=== PATIENT | male | born 1975 | race African-American/Black ===

== ENCOUNTER 2019-03-09 21:51 | Emergency (ER) | payer SELFPAY ==
[~2019-03-09] VITALS: Ht 177.8 cm; Wt 108.9 kg
[2019-03-09] MEDS ORDERED: ALBUTEROL FS 2.5 MG/3 ML VIAL.NEB NEB ONE (22:30)
[2019-03-09] MEDS ORDERED: ASPIRIN 81 MG TAB.CHEW PO ONE (22:30)
[2019-03-09] MEDS ORDERED: predniSONE 20 MG TABLET PO ONE (22:30)
[2019-03-09] MEDS ORDERED: IPRATROPIUM NEB FS 0.5 MG/2.5 ML AMPUL.NEB NEB ONE (22:30)
[2019-03-09] MEDS ORDERED: NITROGLYCERIN PACKET 1 GM PACKET TD ONE (22:30)
[2019-03-09] MEDS ORDERED: IPRATROPIUM NEB FS 0.5 MG/2.5 ML AMPUL.NEB ONE (22:38)
[2019-03-09] MEDS ORDERED: ALBUTEROL FS 2.5 MG/3 ML VIAL.NEB ONE (22:38)
[2019-03-09 22:48] LABS: BASOPHILS # (AUTO) 0.1 /CMM (0.0-0.2); EOSINOPHILS % (AUTO) 1.2 % (0.0-6.0); HEMATOCRIT 46 % (39-51); HEMOGLOBIN 15.4 g/dL (13.5-17.5); LYMPHOCYTES # (AUTO) 1.1 /CMM (0.8-4.8); LYMPHOCYTES % (AUTO) 18.5 % (20.0-44.0); MEAN CORPUSCULAR HGB CONC 34 g/dl (31.0-36.0); MEAN CORPUSCULAR VOLUME 93 fL (80-96); MONOCYTES # (AUTO) 0.4 /CMM (0.1-1.30); MONOCYTES % (AUTO) 6.5 % (2.0-12.0); NEUTROPHILS # (AUTO) 4.2 /CMM (1.8-8.9); NEUTROPHILS % (AUTO) 71.8 % (43.0-81.0); PLATELET COUNT (AUTO) 213 /CMM (150-450); RED BLOOD CELL COUNT(AUTO) 4.93 MIL/uL (4.5-6.0); WHITE BLOOD COUNT (AUTO) 5.8 K/uL (4.3-11.0)
--- NOTE | 2019-03-09 22:54 | NUR ---
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 PT AAOX4, VSS. PT ALSO C/O SOB. DENIES DIZZINESS, N/V, WEAKNESS @ THIS TIME. SEEN & EVAL'D BY DR. BANDA. PLACED ON C JAVA DEVELOPER, SR, NO ECTOPY NOTED. PT'S GETTING BREATHING TX. WILL CONT TO MONITOR.
[2019-03-09 22:56] LABS: CALCIUM, SERUM 9.3 mg/dL (8.5-10.1); CARBON DIOXIDE 27 mmol/L (21-32); CHLORIDE 106 mmol/L (98-107); CREATININE 1.2 mg/dL (0.6-1.3); GLUCOSE 102 mg/dL (74-106); POTASSIUM 3.6 mmol/L (3.5-5.1); SODIUM SERUM 141 mmol/L (136-145); UREA NITROGEN, BLOOD 12 mg/dL (7-18)
[2019-03-09] MEDS ORDERED: predniSONE 20 MG TABLET ONE (22:58)
[2019-03-09] MEDS ORDERED: HYDROCODONE/APAP 10/325MG 1 EA TABLET ONE (23:18)
[2019-03-09] MEDS ORDERED: ONDANSETRON 4 MG TAB.RAPDIS ONE (23:19)
[2019-03-09 23:20] LABS: ALANINE AMINOTRANSFERASE 27 U/L (12-78); ALBUMIN 4.1 g/dL (3.4-5.0); ALKALINE PHOSPHATASE 81 U/L (46-116); ASPARTATE AMINOTRANSFERASE 18 U/L (15-37); B-TYPE NATRIURETIC PEPTIDE 55 PG/ML (0-125); BILIRUBIN,DIRECT 0.1 mg/dL (0.0-0.2); BILIRUBIN,TOTAL 0.4 mg/dL (0.2-1.0); TOTAL PROTEIN, SERUM 7.5 g/dL (6.4-8.2)
[2019-03-09] MEDS ORDERED: HYDROCODONE/APAP 10/325MG 1 EA TABLET PO ONE (23:30)
[2019-03-09] MEDS ORDERED: IV NS 0.9% 500 ML BAG IV ONE (23:30)
[2019-03-09] MEDS ORDERED: ONDANSETRON 4 MG TAB.RAPDIS SL ONE (23:30)
--- NOTE | 2019-03-10 00:10 | NUR ---
Patient discharged to home in stable condition. Written and verbal after care instructions given. Patient verbalizes understanding of instruction. IV removed. Catheter intact and site benign. Pressure and 4x4 applied to site. No bleeding noted.
[2019-03-10 00:11] VITALS: BP 132/82
== END 2019-03-10 00:11 | disposition home or self-care (01) ==
LOC: ER 21:52
DX: J20.9 Acute bronchitis, unspecified (principal); R07.89 Other chest pain; Z98.890 Other specified postprocedural states; Z88.1 Allergy status to other antibiotic agents; Z60.2 Problems related to living alone
CPT/HCPCS: 36415; 71045; 80048; 80076; 83880; 84484; 85025; 87804 ×2; 93005; 94640; 99284; J7512; Q0162